=== PATIENT | female | born 1995 | race Hispanic/Latino ===

== ENCOUNTER 2019-01-24 19:58 | Emergency (ER) | payer OTHER ==
[~2019-01-24] VITALS: Ht 157.5 cm; Wt 45.5 kg
[2019-01-24 21:08] LABS: BASO # 0.1 10^3/uL (0.0-0.2); BASO % 0.8 % (0.0-1.0); EOS # 0.1 10^3/uL (0.0-0.5); EOS % 0.7 % (0.0-3.0); HEMATOCRIT 36.5 % (36.0-47.0); HEMOGLOBIN 12.6 g/dl (12.0-15.5); LYMPH # 3.3 10^3/uL (1.5-5.0); LYMPH % 28.2 % (24.0-44.0); MEAN CORPUSCULAR HEMOGLOBIN 31.8 pg (27.0-33.0); MEAN CORPUSCULAR HGB CONC 34.5 g/dl (32.0-36.5); MEAN CORPUSCULAR VOLUME 92.2 fl (80.0-96.0); MONO # 0.7 10^3/uL (0.0-0.8); MONO % 5.6 % (0.0-5.0); NEUTROPHILS # 7.5 10^3/uL (1.5-8.5); NEUTROPHILS % 64.4 % (36.0-66.0); PLATELET COUNT, AUTOMATED 351 10^3/uL (150-450); RED BLOOD COUNT 3.96 10^6/uL (4.00-5.40); WHITE BLOOD COUNT 11.6 10^3/uL (4.0-10.0)
[2019-01-24 21:45] LABS: BLOOD UREA NITROGEN 15 MG/DL (7-18); CALCIUM LEVEL 10.2 MG/DL (8.5-10.1); CARBON DIOXIDE LEVEL 28 MEQ/L (21-32); CHLORIDE LEVEL 105 MEQ/L (98-107); CREATININE FOR GFR 0.72 MG/DL (0.55-1.30); GLOMERULAR FILTRATION RATE > 60.0 (>60); GLUCOSE, FASTING 83 MG/DL (70-100); HCG, SERUM QUANTITATIVE 8443 MIU/ML; POTASSIUM SERUM 4.1 MEQ/L (3.5-5.1); SODIUM LEVEL 138 MEQ/L (136-145)
--- NOTE | 2019-01-24 23:26 | REPVR ---
EXAM: US First Trimester, Transabdominal EXAM DATE/TIME: 01/24/2019 10:45 PM CLINICAL HISTORY: 23 years old, female; complicated by abdominal or pelvic pain; Left lower quadrant; First trimester; Gestational age or lmp: 5w0d; ; Prior surgery; Surgery date: 6+ months; Surgery type: 2 yrs ago; Additional info: Bleeding, cramping TECHNIQUE: Imaging protocol: Real-time transabdominal obstetrical ultrasound of the maternal pelvis and a first trimester , less than 14 weeks 0 days, with image documentation. COMPARISON: No relevant prior studies available. FINDINGS: GESTATION: Gestation: Small gestational sac in the uterine fundus has an average sac size of 7 mm. No yolk sac demonstrated. No pole demonstrated. Heart rate: No cardiac activity demonstrated. Placenta/gestational sac: No subchorionic bleed. Amniotic fluid: Amniotic/chorionic fluid are normal for gestational age. BIOMETRY: Estimated gestational age: Gestational age based on average sac size is 5 weeks 3 days which corresponds to an LMP of 12/20/2017. MATERNAL: Uterus: Uterus measures 11.3 x 5.1 x 5.4 cm. Cervix: Unremarkable. Right adnexa: Right ovary measures 3.7 x 2.3 x 2.9 cm. Resistive index 0.50. Left adnexa: Left ovary measures 4.1 x 2.3 x 2.8 cm. Resistive index 0.75 Intraperitoneal: No intraperitoneal free fluid. IMPRESSION: Findings compatible with an early intrauterine gestation of approximately 5 weeks 3 days. Follow up ultrasound recommended to document the presence of a pole, no sac and cardiac activity and to exclude early failure and less likely an ectopic . Electronically signed by: Cole Moon On 01/24/2019 23:25:51 PM
[2019-01-24 23:52] LABS: CHLAMYDIA DNA AMPLIFICATION NEGATIVE (NEGATIVE); GC DNA AMPLIFICATION NEGATIVE (NEGATIVE)
[2019-01-24 23:58] VITALS: BP 112/68
== END 2019-01-24 23:59 | disposition home or self-care (01) ==
LOC: M ED 19:58
DX: O26.891 Other specified pregnancy related conditions, first trimester (principal); O26.851 Spotting complicating pregnancy, first trimester; Z3A.01 Less than 8 weeks gestation of pregnancy; R10.2 Pelvic and perineal pain; N80.9 Endometriosis, unspecified; M54.5 Low back pain; Z88.8 Allergy status to other drugs, medicaments and biological substances

== ENCOUNTER → 2019-01-26 | Outpatient (CLI) | payer OTHER | LOC: M LAB 16:39 | PROVIDERS: ATTEND Physician Assistant Medical | DX: O20.0 Threatened abortion (principal); Z3A.00 Weeks of gestation of pregnancy not specified ==